=== PATIENT | female | born 1960 | race Caucasian/White ===

== ENCOUNTER 2019-12-05 16:52 | Emergency (ER) | payer BC, OTHER ==
[2019-12-05 17:07] VITALS: BP 132/71
--- NOTE | 2019-12-05 17:27 | ER Document Report ---
ED Hand/Wrist Injury - General Chief Complaint: Wrist Injury Stated Complaint: WRIST INJURY Time Seen by Provider: 12/05/19 17:20 Notes: CHIEF COMPLAINT: Left wrist injury HPI: 59-year-old female presenting for evaluation of lateral left wrist injury today. 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 Now with pain with movement. Denies numbness or tingling in the fingertips. Denies other injuries or complaints is right-hand dominant ROS: See HPI - all other systems were reviewed and are otherwise negative Constitutional: no fever Integumentary: no rash Allergy: no hives Musculoskeletal: + extremity pain or swelling Neurological: no numbness/tingling MEDICATIONS: I agree with the patient medications as charted by the RN. ALLERGIES: I agree with the allergies as charted by the RN. PAST MEDICAL HISTORY/PAST SURGICAL HISTORY: Reviewed and agree as charted by RN. SOCIAL HISTORY: Reviewed and agree as charted by RN. FAMILY HISTORY: No significant familial comorbid conditions directly related to patient complaint EXAM: Reviewed vital signs as charted by RN. CONSTITUTIONAL: Alert and oriented and responds appropriately to questions. Well-appearing; well-nourished HEAD: Normocephalic; atraumatic EYES: Conjunctivae clear, sclerae non-icteric ENT: normal nose; no rhinorrhea; moist mucous membranes NECK: Supple without meningismus CARD: symmetric distal pulses RESP: Normal chest excursion without splinting or tachypnea ABD/GI: non-distended BACK: The back appears normal EXT: Patient with no tenderness on palpation of the left wrist no visible bruising or soft tissue swelling. She reports tenderness in the lateral aspect of the wrist just distal to the ulnar styloid with full flexion or extension of the hand and wrist. Radial and ulnar pulses are present in the left wrist. Sensation is intact in the fingertips with capillary refill less than 3 seconds. Patient is able to fully flex and extend the fingers of the left hand as well as abduct the thumb SKIN: Normal color for age and race; warm; dry; good turgor; no acute lesions noted NEURO: Moves all extremities equally; Motor and sensory function intact PSYCH: The patient's mood and manner are appropriate. Grooming and personal hygiene are appropriate. MDM: 59-year-old female injury to the lateral left wrist will obtain x-ray for fracture Past Medical History - Social History Smoking Status: Unknown if Ever Smoked Family History: Reviewed & Not Pertinent Physical Exam - Vital signs Vitals: Temp Pulse Resp BP Pulse Ox 98.6 F 88 18 132/71 H 99 12/05/19 17:05 12/05/19 17:05 12/05/19 17:05 12/05/19 17:05 12/05/19 17:05 Course - Re-evaluation Re-evalutation: 12/05/19 17:34 On my review of the patient's x-ray there does appear to be a small bone fragment near the ulnar styloid but appears very well corticated suggesting an older injury. Will place the patient in a cock-up splint, refer to orthopedics for follow-up - Vital Signs Vital signs: Temp Pulse Resp BP Pulse Ox 98.6 F 88 18 132/71 H 99 12/05/19 17:20 12/05/19 17:05 12/05/19 17:05 12/05/19 17:05 12/05/19 17:05 Procedures - Immobilization Left Wrist Time completed: 17:35 Pre-Proc Neuro Vasc Exam: Normal Immobilizer type: Cock-up Performed by: PCT Post-Proc Neuro Vasc Exam: Normal, Unchanged from pre-exam Alignment checked and good: Yes Discharge - Discharge Clinical Impression: Left wrist sprain Qualifiers: Encounter type: initial encounter Qualified Code(s): S63.502A - Unspecified sprain of left wrist, initial encounter Condition: Stable Disposition: HOME, SELF-CARE Instructions: Wrist Sprain ([facility]) Additional Instructions: 1. splint for comfort 2. medicines for pain as prescribed 3. ice the hand three times daily for swelling for 10 minutes at a time, do not place ice directly on skin 4. follow up with orthopedics for further evaluation and treatment, call for appt. Prescriptions: Diclofenac Sodium [Voltaren 50 Mg [place].] 50 mg PO BID #20 tablet. Referrals: DIMITRY SMITH DO [ACTIVE STAFF] - Follow up as needed
--- NOTE | 2019-12-05 18:02 | RADIOLOGY REPORT (SQ) ---
EXAM DESCRIPTION: WRIST LEFT 3 VIEWS IMAGES COMPLETED DATE/TIME: 12/05/2019 5:42 pm REASON FOR STUDY: lateral injury COMPARISON: None. NUMBER OF VIEWS: Three views. TECHNIQUE: AP, lateral, and oblique radiographic images acquired of the left wrist. LIMITATIONS: None. FINDINGS: MINERALIZATION: Normal. BONES: No acute fracture or dislocation. Well corticated osseous structure at the tip of the ulnar s tyloid. No worrisome bone lesions. Normal alignment. SOFT TISSUES: No soft tissue swelling. No foreign body. OTHER: No other significant finding. IMPRESSION: WELL CORTICATED OSSEOUS STRUCTURE AT THE TIP OF THE ULNAR STYLOID WHICH MAY BE A SMALL A CCESSORY OSSICLE OR DUE TO OLD AVULSION INJURY. NO RADIOGRAPHIC EVIDENCE OF ACUTE INJURY. TECHNICAL DOCUMENTATION: JOB ID: [id number] [employer]- All Rights Reserved Reading location - IP/workstation name: [email or web address]
== END 2019-12-05 17:54 | disposition home or self-care (01) ==
LOC: ER 16:52
DX: S63.502A Unspecified sprain of left wrist, initial encounter (principal); X50.0XXA Overexertion from strenuous movement or load, initial encounter
CPT/HCPCS: 99283

== ENCOUNTER 2020-02-09 16:48 | Emergency (ER) | payer BC, OTHER ==
--- NOTE | 2020-02-09 17:43 | ER Document Report ---
ED Medical Screen (RME) - General Chief Complaint: Breast Problem Stated Complaint: LEFT BREAST PAIN Time Seen by Provider: 02/09/20 17:29 Primary Care Provider: ELIZABETH TRAN MD [Primary Care Provider] - Follow up as needed - [facility] Notes: 02/09/20 17:41 59-year-old female to the emergency department with complaints of left lateral chest wall pain, palpitations and shortness of breath that began this morning. She has a history of breast cancer and has been in remission for 13 years. She started experiencing chest wall pain this morning and then got very concerned. She states she did see her oncologistDr. Frank PA just prior to this they did not feel any mass in the axilla or along the chest wall. She also states that she does not feel any masses. She states the pain is in side. Not worse with big deep breath or when you touch it. She is never had a history of PE or DVT. She is not on any exogenous hormones. She denies any leg swelling. She has not recently been traveling. She does have prediabetes, hypertension, and hyperlipidemia. There is family history for coronary artery disease. Both parents from congestive heart failure. She does not smoke. She is never had a heart attack. She is never had a stress test. On brief medical screening exam, patient has no tenderness to palpation over the left lateral chest wall with no crepitus or step-off. Her lungs are clear to auscultation throughout. She has no leg swelling. I performed a brief medical screening exam on the patient determined that the patient needs further evaluation and management by main side provider. I have placed initial orders to help expedite care. - Related Data Allergies/Adverse Reactions: No Known Allergies Allergy (Verified 02/09/20 17:29) Past Medical History - Past Medical History Cardiac Medical History: Reports: Hx Hypercholesterolemia, Hx Hypertension Endocrine Medical History: Reports: Hx Diabetes Mellitus Type 2 - pre Past Surgical History: Reports: Hx Orthopedic Surgery - knee Physical Exam - Vital signs Vitals: Temp Pulse Resp BP Pulse Ox 98.8 F 114 H 16 165/90 H 99 02/09/20 16:56 02/09/20 16:56 02/09/20 16:56 02/09/20 16:56 02/09/20 16:56 Course - Vital Signs Vital signs: Temp Pulse Resp BP Pulse Ox 98.8 F 114 H 16 165/90 H 99 02/09/20 16:56 02/09/20 16:56 02/09/20 16:56 02/09/20 16:56 02/09/20 16:56 Doctor's Discharge - Discharge Referrals: ELIZABETH TRAN MD [Primary Care Provider] - Follow up as needed
[2020-02-09 18:16] LABS: ABSOLUTE EOSINOPHILS # (AUTO) 0.1 10^3/uL (0.0-0.6); ABSOLUTE LYMPHOCYTES (AUTO) 1.8 10^3/uL (0.5-4.7); ABSOLUTE MONOCYTES (AUTO) 0.4 10^3/uL (0.1-1.4); ABSOLUTE NEUT (AUTO) 4.5 10^3/uL (1.7-8.2); BASOPHILS % (AUTO) 0.4 % (0-2); EOSINOPHILS % (AUTO) 0.8 % (0-6); HEMATOCRIT 37.6 % (36.0-47.0); HEMOGLOBIN 12.8 g/dL (12.0-15.5); LYMPHOCYTES % (AUTO) 26.3 % (13-45); MEAN CORPUSCULAR HEMOGLOBIN 31.6 pg (27.0-33.4); MEAN CORPUSCULAR HGB CONC 34.1 g/dL (32.0-36.0); MEAN CORPUSCULAR VOLUME 93 fl (80-97); MONOCYTES % (AUTO) 5.6 % (3-13); PLATELET COUNT 304 10^3/uL (150-450); RED BLOOD COUNT 4.06 10^6/uL (3.72-5.28); RED CELL DISTRIBUTION WIDTH 12.9 % (11.5-14.0); SEGMENTED NEUTROPHILS % (AUTO) 66.9 % (42-78); TOTAL CELLS COUNTED % (AUTO) 100 %; WHITE BLOOD COUNT 6.8 10^3/uL (4.0-10.5)
--- NOTE | 2020-02-09 18:17 | RADIOLOGY REPORT (SQ) ---
EXAM DESCRIPTION: CHEST 2 VIEWS IMAGES COMPLETED DATE/TIME: 02/09/2020 6:04 pm REASON FOR STUDY: chest pain, palpitations, SOB COMPARISON: None. EXAM PARAMETERS: NUMBER OF VIEWS: two views TECHNIQUE: Digital Frontal and Lateral radiographic views of the chest acquired. RADIATION DOSE: NA LIMITATIONS: none FINDINGS: LUNGS AND PLEURA: No opacities, masses or pneumothorax. No pleural effusion. MEDIASTINUM AND HILAR STRUCTURES: No masses or contour abnormalities. HEART AND VASCULAR STRUCTURES: Heart normal size. No evidence for failure. BONES: No acute findings. HARDWARE: None in the chest. OTHER: No other significant finding. IMPRESSION: NO ACUTE RADIOGRAPHIC FINDING IN THE CHEST. TECHNICAL DOCUMENTATION: JOB ID: [id number] [employer]- All Rights Reserved Reading location - IP/workstation name: [email or web address]
--- NOTE | 2020-02-09 18:25 | ER Document Report ---
Entered by IVAN CARVALHO SCRIBE 02/09/20 1824 Acting as scribe for:ИРИНА CALVERT, ED General - General Chief Complaint: Chest Pain > 30 Stated Complaint: LEFT BREAST PAIN Time Seen by Provider: 02/09/20 17:29 Primary Care Provider: ELIZABETH TRAN MD [Primary Care Provider] - Follow up as needed Information source: Patient Notes: This 59 year old female patient presents to the emergency department today with pain to her left chest under her arm after lifting it up this morning. Patient states on her way to her routine follow up oncology appointment she noticed she felt weird and then there was tingling to her bilateral arms and fingers. Patient states this made her anxious and her blood pressure at her appointment was around 163/103 and sugar 73. Patient states her exam was normal without any masses. Patient reports history of HTN, HLD, DM, and breast cancer x13 years ago with a lumpectomy. Patient states she walks on her treadmill regularly and does not experience chest pain or shortness of breath. Denies any recent fever, cough, or covid exposure. - Related Data Allergies/Adverse Reactions: No Known Allergies Allergy (Verified 02/09/20 17:29) Past Medical History - General Information source: Patient - Social History Smoking Status: Never Smoker Cigarette use (# per day): No Family History: DM, Hypertension, Other - CHF - Past Medical History Cardiac Medical History: Reports: Hx Hypercholesterolemia, Hx Hypertension Endocrine Medical History: Reports: Hx Diabetes Mellitus Type 2 - pre Malignancy Medical History: Reports: Hx Breast Cancer - x13 years ago Past Surgical History: Reports: Hx Lumpectomy, Hx Orthopedic Surgery - knee Review of Systems - Review of Systems Constitutional: See HPI. denies: Fever EENT: No symptoms reported Cardiovascular: See HPI, Chest pain - under left arm Respiratory: See HPI. denies: Cough, Short of breath Gastrointestinal: No symptoms reported Genitourinary: No symptoms reported Female Genitourinary: No symptoms reported Musculoskeletal: No symptoms reported Skin: No symptoms reported Hematologic/Lymphatic: No symptoms reported Neurological/Psychological: See HPI, Tingling - bilateral upper extremities -: Yes All other systems reviewed and negative Physical Exam - Vital signs Vitals: Temp Pulse Resp BP Pulse Ox 98.8 F 114 H 16 165/90 H 99 02/09/20 16:56 02/09/20 16:56 02/09/20 16:56 02/09/20 16:56 02/09/20 16:56 - General General appearance: Appears well, Alert - HEENT Head: Normocephalic, Atraumatic Eyes: Normal Pupils: PERRL - Respiratory Respiratory status: No respiratory distress Chest status: Nontender Breath sounds: Normal Chest palpation: Normal - Cardiovascular Rhythm: Regular Heart sounds: Normal auscultation Murmur: No - Abdominal Inspection: Obese - mild Distension: No distension Bowel sounds: Normal Tenderness: Nontender - Extremities General upper extremity: Normal inspection, Normal ROM General lower extremity: Normal inspection, Normal ROM. No: Edema - Neurological Neuro grossly intact: Yes Cognition: Normal Orientation: AAOx4 [place] Coma Scale Eye Opening: Spontaneous [place] Coma Scale Verbal: Oriented [place] Coma Scale Motor: Obeys Commands [place] Coma Scale Total: 15 Speech: Normal Motor strength normal: LUE, RUE, LLE, RLE Sensory: Normal - Psychological Associated symptoms: Normal affect, Normal mood - Skin Skin Temperature: Warm Skin Moisture: Dry Skin Color: Normal Course - Re-evaluation Re-evalutation: 02/09/20 19:12 MDM 59 year old female arrives with "a funny feeling" earlier today. After lifting left arm up to shave a hair felt funny in the left chest wall area. Then while driving to oncology appointment - 13 year breast cancer survivor - felt tingling in both hands and felt "like I've never felt before." FSBS at oncology office was about 70 and given snack. No recent illness. Feels fine now. No chest pain or sob. Good exercise tolerance - walks twice a day on treadmill and never limited by chest pain or sob. No covid exposure. Considerations of differential in this pt included acs, cap, ptx, pe and nonstemi. She does have cardiac risks and should closely follow up due to this. The risk of covid exposure exposure in the hospital in certainly not zero and as the covid incidence is siginificant and rising feel outpt close follow up is certainly reasonable for this nice lady. We reviewed return precautions and she expressed understanding. - Vital Signs Vital signs: Temp Pulse Resp BP Pulse Ox 98.8 F 114 H 16 165/90 H 99 02/09/20 16:56 02/09/20 16:56 02/09/20 16:56 02/09/20 16:56 02/09/20 16:56 - Laboratory Result Diagrams: 02/09/20 17:45 02/09/20 17:45 Laboratory results interpreted by me: 02/09/20 17:45 Carbon Dioxide 32 H Calcium 10.3 H - Diagnostic Test Radiology reviewed: Image reviewed, Reports reviewed - EKG Interpretation by Me EKG shows normal: Sinus rhythm Rate: Normal - NSR NL [place] [address] elevation or depression [facility] my intepretation. 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 Take 162 mg aspirin - 2 baby aspirin - daily Take your other medicine as directed. Your blood pressure was elevated just a bit here. Be sure and have that rechecked. Please return here for chest pain, shortness of breath or other problems or concerns. Referrals: ELIZABETH TRAN MD [Primary Care Provider] - Follow up as needed HERO REEDER MD [ACTIVE STAFF] - 02/10/20 I personally performed the services described in the documentation, reviewed and edited the documentation which was dictated to the scribe in my presence, and it accurately records my words and actions.
[2020-02-09 18:38] LABS: ALBUMIN 4.9 g/dL (3.5-5.0); ALKALINE PHOSPHATASE 60 U/L (38-126); ANION GAP 10 (5-19); ASPARTATE AMINO TRANSFERASE 23 U/L (14-36); BILIRUBIN,DIRECT 0.2 mg/dL (0.0-0.4); BILIRUBIN,TOTAL 0.4 mg/dL (0.2-1.3); BLOOD UREA NITROGEN 12 mg/dL (7-20); CALCIUM 10.3 mg/dL (8.4-10.2); CARBON DIOXIDE 32 mmol/L (22-30); CHLORIDE 99 mmol/L (98-107); GLUCOSE 110 mg/dL (75-110); TOTAL PROTEIN 7.9 g/dL (6.3-8.2)
--- NOTE | 2020-02-09 19:07 | EKG REPORT ---
SEVERITY:- ABNORMAL ECG - SINUS RHYTHM CONSIDER LEFT VENTRICULAR HYPERTROPHY BORDERLINE T ABNORMALITIES, INFERIOR LEADS : Confirmed by: Sukh Stallworth MD 09-Feb-2020 19:06:32
[2020-02-09] MEDS ORDERED: METOPROLOL TARTRATE 25 MG TABLET PO ONE (19:24)
[2020-02-09] MEDS ORDERED: ASPIRIN 81 MG TABLET, ENT COATED PO ONE (19:24)
[2020-02-09 19:30] VITALS: BP 117/80
== END 2020-02-09 19:45 | disposition home or self-care (01) ==
LOC: ER 16:48
DX: R07.89 Other chest pain (principal); I10 Essential (primary) hypertension; R20.2 Paresthesia of skin; Z85.3 Personal history of malignant neoplasm of breast
CPT/HCPCS: 36415; 71046; 80053; 83735; 84443; 84484; 85025; 85379; 93005; 93010; 99285

== ENCOUNTER → 2020-02-28 | Outpatient (CLI) | payer BC, OTHER ==
[~2020-02-28] MED LIST: METOPROLOL TARTRATE PF/INJ 5 MG/5 ML SDV IV ONE; REGADENOSON INJ 0.4 MG/5 ML DISP.SYRIN IV ONE
--- NOTE | 2020-02-28 12:26 | DRAGON STRESS TEST REPORT ---
Pharmacological nuclear stress test Date: 02/28/2020 Referring physician: Sukh Stallworth MD Performing physician: Sukh Stallworth MD Indication: Chest pain Clinical history 59-year-old lady with medical history of Ca Breast(L) in remission, systemic hypertension, dyslipidemia and diabetes mellitus with chest pain. We decided to proceed with pharmacological nuclear stress test. Procedure The patient presented to the stress lab. Initially rest images were obtained according to standard protocol after the injection of 10.81 millicurie technetium 99m sestamibi. Subsequently the patient underwent pharmacological stress utilizing 0.4 mg of regadenoson intravenously. The patient's EKG and vital signs were monitored throughout the procedure. Subsequently patient was injected with 32 millicuries of technetium 99m sestamibi. After a period of rest, stress images were obtained according to standard protocol. The presenting EKG showed sinus tachycardia at 108 beats per minute. Soon after the administration of regadenoson the patient was noted to be in supraventricular tachycardia with a maximum heart rate approaching 173 bpm. She was symptomatic. Her blood pressure was elevated during this episode of tachycardia. Vagal maneuvers were unsuccessful in terminating tachycardia. Thus we administered metoprolol 2.5 mg IV, which slowed down the tachycardia and then it converted to sinus tachycardia. The mechanism and the mode of termination seem to suggest an atrial tachycardia as the arrhythmia. The patient's stress EKG did not show any evidence for myocardial ischemia however this is clouded by the fact that she had rate related ST depression during the episode of SVT which was observed right after administration of pharmacological stressor. The EKG after termination of supraventricular tachycardia did not show any significant ST-T changes. Raw as well as processed rest and stress images were reviewed. There was mild to moderate gut uptake which did not interfere with the study. The rest and stress images show uniform uptake of radioactive isotope without any fixed or reversible defects to suggest myocardial ischemia or myocardial infarction. There is normal contractility post-rest. The calculated ejection fraction is 64 %. The TID ratio is 0.83 Conclusion The stress EKG is negative for myocardial ischemia Patient developed supraventricular tachycardia which was terminated with administration of intravenous metoprolol. There is no scintigraphic evidence of myocardial infarction or ischemia provoked by pharmacological stress. There is normal contractility post-stress. The gated left ventricular ejection fraction is 64 %. The patient will be given an appointment to discuss these results. MTDD
== END ==
LOC: RAD 07:54
PROVIDERS: ATTEND Internal Medicine
DX: I10 Essential (primary) hypertension (principal); R06.02 Shortness of breath; I25.9 Chronic ischemic heart disease, unspecified; E78.5 Hyperlipidemia, unspecified; E11.9 Type 2 diabetes mellitus without complications; Z85.3 Personal history of malignant neoplasm of breast
CPT/HCPCS: 93017; 78452; A9500; J2785; J3490; Q9969